=== PATIENT | female | born 1985 | race Caucasian/White ===

== ENCOUNTER 2019-06-20 23:17 | Emergency (ER) | payer OTHER ==
[2019-06-20 23:17] VITALS: Ht 160 cm
[~2019-06-20 23:17] MED LIST: IBUPROFEN600 MG PO; PERCOCET 5-3251 TAB PO; PRENATAL COMPLE1 TAB PO
[2019-06-21 01:05] LABS: APTT 143.5 SECONDS (22.8-39.4); D-DIMER-QUANTITATIVE > 20.00 ug/mLFEU (0.20-0.54); FIBRINOGEN 149 mg/dL (239-481); INR 2.09 (0.85-1.17); PROTIME 23.2 SECONDS (11.6-15.0)
[2019-06-21 01:06] LABS: BASOPHILS 0.2 % (0-2); EOSINOPHILS 0.3 % (0-7); HEMOGLOBIN 13.5 g/dL (12-16); LYMPHOCYTES 68.6 % (15-50); MCH 31.3 pg (26.0-34.0); MCHC 27.6 g/dL (31.0-37.0); MCV 113.7 fL (80.0-100.0); MONOCYTES 2.2 % (2-11); NEUTROPHILS 27.7 % (40-80); RBC 4.31 10x6/uL (4.00-5.40); RDW 13.5 % (11.5-14.5); WBC 5.9 10x3/uL (4.8-10.8)
[2019-06-21 01:07] LABS: ALBUMIN 3.5 g/dL (3.4-5.0); ALKALINE PHOSPHATASE 80 U/L (30-120); ALT (SGPT) 1097 U/L (10-68); BILIRUBIN - TOTAL 0.26 mg/dL (0.2-1.3); CALC OSMOLALITY 314 mosm/kg (275-300); CALCIUM 10.2 mg/dL (8.5-10.1); CARBON DIOXIDE 9.3 mmol/L (21.0-32.0); CHLORIDE - SERUM 93 mmol/L (98-107); CKMB 3.5 U/L (0.0-3.6); CREATINE KINASE 396 UL (21-215); CREATININE - SERUM 1.3 mg/dL (0.6-1.3); GLUCOSE 1087 mg/dL (74-106); POTASSIUM - SERUM 9.3 mmol/L (3.5-5.1); PROTEIN - SERUM 7.5 g/dL (6.4-8.2); SODIUM 129 mmol/L (136-145); TROPONIN-I 0.087 ng/mL (0.000-0.060); UREA NITROGEN 15 mg/dL (7-18); eGFR NON AFRICAN AMERICAN 49 mL/min (90-120)
[2019-06-21 01:09] LABS: PLATELET COUNT 132 10x3/uL (130-400)
== END 2019-06-21 01:31 ==
LOC: D.ER 23:17
PROVIDERS: Family Medicine
DX: I46.9 Cardiac arrest, cause unspecified (principal); G40.909 Epilepsy, unspecified, not intractable, without status epilepticus; J96.90 Respiratory failure, unspecified, unspecified whether with hypoxia or hypercapnia